=== PATIENT | female | born 1960 | race African-American/Black ===

== ENCOUNTER 2022-06-18 15:43 | Inpatient (IN) | payer BC ==
[~2022-06-18] VITALS: Ht 165.1 cm; Wt 133.0 kg
[2022-06-18 16:00] VITALS: BP 105/57; PULSE 104; TEMP 98.2
[2022-06-18] MEDS ORDERED: DOXYCYCLINE 10100 MG PO (16:11)
[2022-06-18] MEDS ORDERED: NORCO 325 MG-51 TAB PO (16:12)
[2022-06-18] MEDS ORDERED: PROTONIX 40MG T40 MG PO (16:12)
[2022-06-18] MEDS ORDERED: TIMOLOL MALEATE5 M1 OD (16:13)
[2022-06-18 17:51] LABS: BASO % 0.4 % (0.0-2.0); EOS # 0.1 K/mm3 (0.0-0.7); EOS % 0.6 % (0.0-4.0); GRAN # 8.1 K/mm3 (1.4-6.5); GRAN % 73.7 % (42.2-75.2); LYMPH # 1.9 K/mm3 (1.2-3.4); LYMPH % 16.9 % (20.0-51.0); MEAN CELL VOLUME 88 fl (80.0-100.0); MEAN CORPUSCULAR HGB CONC 31 g/dl (33.0-37.0); MEAN PLATELET VOLUME 9.8 fl (7.4-10.4); MONO # 0.8 K/mm3 (0.1-0.6); MONO % 7.4 % (1.7-9.3); PLATELET COUNT 569 K/mm3 (130-400); RED BLOOD COUNT 3.06 M/mm3 (4.10-5.30)
[2022-06-18 17:53] LABS: HEMOGLOBIN 8.4 g/dl (12.5-16.0); MEAN CORPUSCULAR HEMOGLOBIN 27 pg (27-31)
[2022-06-18 17:54] LABS: RETIC # 0.16 M/mm3 (0.02-0.16); RETIC % 5.3 % (0.5-3.52)
[2022-06-18 18:08] LABS: ALBUMIN 2.1 gm/dL (3.4-4.8); BILIRUBIN,TOTAL 0.6 mg/dL (0.2-1.2); CALCIUM 8.6 mg/dL (8.4-10.2); CREATININE, serum 0.72 mg/dL (0.57-1.11); POTASSIUM 3.5 mmol/L (3.5-4.5); TOTAL PROTEIN 7.2 gm/dL (6.2-8.1)
[2022-06-18 18:21] LABS: MAGNESIUM 1.8 mg/dL (1.6-2.6); PHOSPHOROUS 2.4 mg/dL (2.3-4.7)
--- NOTE | 2022-06-18 19:54 | NUR ---
PT BACK FROM CT RESTING IN BED, SISTER AT BEDSIDE. LEFT IJ PLACEMENT CONFIRMED AND IV MEDICATIONS ADMINISTERED PER EMAR. PT RATES PAIN A 0/10 TODAY. VSS AND TELE IN PLACE. PT DENIES N/V. FALL PRECAUTIONS IN PLACE. NO NEEDS AT THIS TIME. CALL LIGHT WITHIN REACH.
[2022-06-18 20:03] VITALS: BP 103/55; PULSE 89; TEMP 98.9
[2022-06-19] VITALS (14 sets, daily range): BP systolic 81–125; BP diastolic 42–73; PULSE 67–102; TEMP 97.8–99.1
[2022-06-19 05:16] LABS: BASO % 0.4 % (0.0-2.0); EOS # 0.1 K/mm3 (0.0-0.7); GRAN # 7.5 K/mm3 (1.4-6.5); LYMPH # 2.2 K/mm3 (1.2-3.4); LYMPH % 20.7 % (20.0-51.0); MEAN CELL VOLUME 88 fl (80.0-100.0); MEAN CORPUSCULAR HGB CONC 31 g/dl (33.0-37.0); MEAN PLATELET VOLUME 9.5 fl (7.4-10.4); MONO # 0.9 K/mm3 (0.1-0.6); MONO % 8.2 % (1.7-9.3); PLATELET COUNT 555 K/mm3 (130-400); RED BLOOD COUNT 2.78 M/mm3 (4.10-5.30)
[2022-06-19 05:19] LABS: HEMATOCRIT 24.5 % (37.0-47.0); HEMOGLOBIN 7.5 g/dl (12.5-16.0); MEAN CORPUSCULAR HEMOGLOBIN 27 pg (27-31)
--- NOTE | 2022-06-19 05:32 | NUR ---
PT SLEPT THROUGH THE NIGHT, NO EPISODES OF N/V OR BLOODY STOOLS. NO REPORTS OF ABDOMINAL PAIN
[2022-06-19 05:34] LABS: CALCIUM 8.3 mg/dL (8.4-10.2); CREATININE, serum 0.79 mg/dL (0.57-1.11); POTASSIUM 3.2 mmol/L (3.5-4.5)
--- NOTE | 2022-06-19 08:00 | NUR ---
PATIENT IS A&O. VSS ON TELE. DENIES PAIN OR NAUSEA THIS AM. NPO FOR PENDING ABSCESS DRAIN PLACEMENT TODAY. IV FLUIDS INFUSING VIA PUMP INTO LEFT IJ. HEAD TO TOE ASSESSMENT COMPLETE. AM MEDS GIVEN. PT/OT/ST CONSULTED. SISTER AT BEDSIDE. NO OTHER NEEDS. CALL LIGHT IN REACH.
[2022-06-19 09:13] LABS: AMORPHOUS CRYSTAL Present (NOT PRESENT); MUCOUS Present (NOT PRESENT); URINE BACTERIA None Seen /hpf (NONE SEEN); URINE RBC 0-2 /hpf (0-2)
[2022-06-19 09:15] LABS: COLLECTION METHOD CLEAN CATCH; PH 5.5 (5.0-8.5); URINE APPEARANCE Turbid (CLEAR/HAZY); URINE BLOOD Negative (NEGATIVE); URINE COLOR Yellow (YELLOW); URINE GLUCOSE Negative (NEGATIVE); URINE KETONE 1+ (NEGATIVE); URINE NITRATE Negative (NEGATIVE); URINE PROTEIN(semi-quant) Negative (NEGATIVE); URINE UROBILINOGEN >=8.0 E.U/dL (0.2-1.0)
--- NOTE | 2022-06-19 09:55 | NUR ---
Initial visit; Patient thanked Agency Sales Management Assistant for looking in on her and offering God's blessings thoughdeclined Spiritual Care.
--- NOTE | 2022-06-19 10:57 | NUR ---
[employer] met with patient to discuss discharge planning. Patient lives with her father, Brock (ph#[phone]) who she is a caregiver for. Patient stated that is why she moved to [place] where they live now. Patient sees Desirae Darden APRN for primary care and obtains medications from [facility] in [place] with no difficulties. Patient is independent with ADLS and does not use any DME. Patient up walking the halls with PT. Patient does not have DPOA-HC but would like to have the form to review. SW provided and offered assistance if needed in completing it. Patient plans to return home at time of discharge. Discharge Plan: Home
--- NOTE | 2022-06-19 13:24 | NUR ---
PATIENT ALERT AND ORIENTED X4. VSS. PATIENT HERE FOR ABDOMINAL ABSCESS. LIJ WITH NS AT 75/HOUR ALL LUMENS FLUSH WELL WITH GOOD BLOOD RETURN. BLE 2-3+ PATIENT REPORTS PAIN 3/10, REQUESTS PAIN MEDICATION. PATIENT IN BED WITH CALL LIGHT NEAR.
--- NOTE | 2022-06-19 13:55 | NUR ---
pt to ct per wheelchair per ct staff, Monitors applied. Pt verbalized understanding of procedure.
--- NOTE | 2022-06-19 14:00 | NUR ---
Dr Silva informed of pts blood pressure. States it is ok to procedure with some versed and fentanyl. Pt very nervous.
--- NOTE | 2022-06-19 14:08 | NUR ---
Purulent drainage removed from abscess by Dr Silva and placed in specimen cup.
--- NOTE | 2022-06-19 18:27 | NUR ---
UPON ENTERING ROOM, PATIENT FOUND TO BE SHIVERING. TEMP TAKEN. 99.1. TYLENOL 1000MG GIVEN. PATIENT DENIES SOB. CLEAR LIQUIDS TRAY BROUGHT TO ROOM. PATIENT TOLERATING.
--- NOTE | 2022-06-19 20:00 | NUR ---
PATIENT IS ORIENTED X4, DROWSY AND READY FOR BED. TELE CALLED DURING SHIFT CHANGE AND REPORTED HR IN 140'S. PATIENT WAS AMBULATING TO BATHROOM. ASYMPTOMATIC. UPON RETURN TO BED, HR ON TELE WAS NOW 107. HEAD TO TOE ASSESSMENT COMPLETE. IV ABX INFUSING VIA PUMP INTO LEFT IJ. NO C/O N/V. TOLERATING CLEARS. ACCORDIAN DRAIN WITH SMALL AMOUNTS OF BLOODY DRAINAGE NOTED. PT/OT/ST ALL CONSULTED. PATIENT REQUESTING SOMETHING FOR ABD PAIN BEFORE BED. GAVE PRN IV MORPHINE. PATIENT RESTING UP IN BED WITHOUT ANY NEEDS. CALL LIGHT IN REACH. LIGHTS TURNED DOWN.
[2022-06-20 04:19] VITALS: BP 94/56; PULSE 107; TEMP 98.3
[2022-06-20 06:14] LABS: BASO # 0.1 K/mm3 (0.0-0.2); BASO % 0.4 % (0.0-2.0); EOS % 0.1 % (0.0-4.0); GRAN # 12.3 K/mm3 (1.4-6.5); GRAN % 83.9 % (42.2-75.2); LYMPH # 1.8 K/mm3 (1.2-3.4); LYMPH % 11.9 % (20.0-51.0); MEAN CELL VOLUME 90 fl (80.0-100.0); MEAN CORPUSCULAR HGB CONC 31 g/dl (33.0-37.0); MEAN PLATELET VOLUME 9.5 fl (7.4-10.4); MONO # 0.5 K/mm3 (0.1-0.6); MONO % 3.1 % (1.7-9.3); PLATELET COUNT 553 K/mm3 (130-400); RED BLOOD COUNT 2.76 M/mm3 (4.10-5.30); REDCELL DISTRIBUTION WIDTH-CV 17.5 % (11.5-14.5)
[2022-06-20 06:24] LABS: HEMATOCRIT 24.9 % (37.0-47.0); HEMOGLOBIN 7.6 g/dl (12.5-16.0); MEAN CORPUSCULAR HEMOGLOBIN 28 pg (27-31)
[2022-06-20 06:32] LABS: C-REACTIVE PROTEIN 20.58 mg/dL (0.00-0.50); CALCIUM 7.9 mg/dL (8.4-10.2); CREATININE, serum 0.93 mg/dL (0.57-1.11); MAGNESIUM 1.7 mg/dL (1.6-2.6); POTASSIUM 3.6 mmol/L (3.5-4.5)
--- NOTE | 2022-06-20 06:44 | NUR ---
appears to be sleeping, bedside shift report received from JOSHUA Bojorquez
[2022-06-20 07:16] VITALS: BP 91/55; PULSE 94; TEMP 98.3
--- NOTE | 2022-06-20 07:57 | NUR ---
awake and looking at TV, full assessment completed, see interventions for further info, states only has pain if takes a real deep breath or moves quickly or with palpation, drain with minimal amount pink milky drainage in reseroivr, site is CD&I, denies needs at this time
--- NOTE | 2022-06-20 09:00 | NUR ---
resting in bed watching TV, having small amount of clear liquids, denies needs
--- NOTE | 2022-06-20 10:00 | NUR ---
ambulating in [facility] standby
--- NOTE | 2022-06-20 10:18 | NUR ---
sitting up in recliner after walking in [place]
--- NOTE | 2022-06-20 11:10 | NUR ---
remains sitting up in chair and denies needs
[2022-06-20 11:40] VITALS: BP 99/57; PULSE 93; TEMP 97.9
--- NOTE | 2022-06-20 12:30 | NUR ---
resting in chair, requesting something more to eat, DR Arguello notified, patient informed her diet had been advanced
--- NOTE | 2022-06-20 13:21 | NUR ---
she was confused about still being able to order l unch, instructed on how to do this now
--- NOTE | 2022-06-20 14:34 | NUR ---
remains up in chair and is visiting with her sister, had low fiber lunch and states it was very good and she was happy to have something solid to eat
--- NOTE | 2022-06-20 15:20 | NUR ---
up and about in room independently with sister at at her side assisting as needed, denies needs
[2022-06-20 15:53] VITALS: BP 102/61; PULSE 98; TEMP 98.5
--- NOTE | 2022-06-20 16:15 | NUR ---
c/o increased pain after being up and moving about and now back to bed, medicated with roxicodone 5mg po
--- NOTE | 2022-06-20 17:06 | NUR ---
in bed and appears to be sleeping, eyes closed, resp quiet and easy
--- NOTE | 2022-06-20 18:54 | NUR ---
appears to be dozing, awakened and bedside shift report given to Elena, JOSHUA
[2022-06-20 20:08] VITALS: BP 105/62; PULSE 98; TEMP 100.9
--- NOTE | 2022-06-20 20:08 | NUR ---
PT IN BED, IS ALERT AND ORIENTED X4. HAS RT ACCORDIAN DRAIN WITH SCANT DRAINAGE NOTED. HAS IVF TO LIJ, NO REDNESS OR SWELLING NOTED, GOOD BLOOD RETURN ALL LUMENS. PT DENIES PAIN TO ABD AT THIS TIME.
--- NOTE | 2022-06-20 21:32 | NUR ---
PT HAS BM, STOOL OB OBTAINED. RESULT IS POSITIVE FOR BLOOD.
[2022-06-21] VITALS (12 sets, daily range): BP systolic 81–113; BP diastolic 51–64; PULSE 65–100; TEMP 98–99.8
--- NOTE | 2022-06-21 01:00 | NUR ---
REPORTED POSITIVE OB TO JOSSIE, NO NEW ORDERS.
[2022-06-21 04:43] LABS: BASO % 0.2 % (0.0-2.0); EOS % 0.2 % (0.0-4.0); GRAN # 14.8 K/mm3 (1.4-6.5); GRAN % 86.7 % (42.2-75.2); LYMPH # 1.4 K/mm3 (1.2-3.4); LYMPH % 8.1 % (20.0-51.0); MEAN CELL VOLUME 93 fl (80.0-100.0); MEAN CORPUSCULAR HGB CONC 29 g/dl (33.0-37.0); MEAN PLATELET VOLUME 9.4 fl (7.4-10.4); MONO # 0.6 K/mm3 (0.1-0.6); MONO % 3.7 % (1.7-9.3); PLATELET COUNT 473 K/mm3 (130-400); RED BLOOD COUNT 2.48 M/mm3 (4.10-5.30); REDCELL DISTRIBUTION WIDTH-CV 17.7 % (11.5-14.5)
[2022-06-21 04:48] LABS: HEMATOCRIT 23.1 % (37.0-47.0); HEMOGLOBIN 6.7 g/dl (12.5-16.0); MEAN CORPUSCULAR HEMOGLOBIN 27 pg (27-31)
--- NOTE | 2022-06-21 04:52 | NUR ---
REPORTED HGB=6.[address] REILLY, NEW ORDERS FOR TYPE/SCREEN AND GIVE 1 UNIT PRBCS AND 500CC BOLUS NOW.
[2022-06-21 04:56] LABS: CREATININE, serum 0.82 mg/dL (0.57-1.11); POTASSIUM 3.8 mmol/L (3.5-4.5)
--- NOTE | 2022-06-21 05:15 | NUR ---
CONSENT FOR BLOOD TRANSFUSION. 500CC BOLUS INFUSING. B/P ALREADY IMPROVED.
--- NOTE | 2022-06-21 05:41 | NUR ---
MEDICATED WITH ES TYLENOL 1000MG PO NOW.
--- NOTE | 2022-06-21 11:22 | NUR ---
[employer] rounds: [employer] visit attempted. Patient was on the phone.
[2022-06-21 12:36] LABS: ALBUMIN 1.6 gm/dL (3.4-4.8); BILIRUBIN,TOTAL 0.5 mg/dL (0.2-1.2); CALCIUM 7.8 mg/dL (8.4-10.2); CREATININE, serum 0.82 mg/dL (0.57-1.11); MAGNESIUM 1.6 mg/dL (1.6-2.6); PHOSPHOROUS 2.3 mg/dL (2.3-4.7); POTASSIUM 3.6 mmol/L (3.5-4.5); TOTAL PROTEIN 5.7 gm/dL (6.2-8.1)
[2022-06-21 16:19] LABS: HEMOGLOBIN 7.6 g/dl (12.5-16.0)
--- NOTE | 2022-06-21 17:59 | NUR ---
PATIENT HAS TPN RUNNING AT 60/HR. IV FLUIDS AT 30/HR. 1 UNIT OF BLOOD GIVEN TODAY. PATIENT DISCHARGING\TRANSFERRING TO [facility]. PATIENT NPO OF THIS MORNING.
[2022-06-21 19:19] LABS: HEMATOCRIT 23.7 % (37.0-47.0); HEMOGLOBIN 7.5 g/dl (12.5-16.0)
--- NOTE | 2022-06-21 21:08 | NUR ---
EMS HERE TO TAKE PT TO [facility]. DID FLUSH ALL LUMENS OF LIJ, DISCONNECTED TPN/LIPIDS AND NS PER EMS REQUEST. PT UP TO VOID THEN TO EMS CART. PERSONAL BELONGINGS PACKAGED UP AND SENT WITH EMS STAFF, INCLUDING CELL PHONE AND [employer] P[employer]. PT DISCHARGED WITH EMS STAFF.
== END 2022-06-21 21:09 | disposition short-term general hospital (02) | DRG 372 ==
LOC: SURG 15:43
PROVIDERS: Internal Medicine; Physician Assistant; Student in an Organized Health Care Education/Training Program; Surgery; ADMIT Internal Medicine
PROC: 02HV33Z Insertion of Infusion Device into Superior Vena Cava, Percutaneous Approach (ICD-10-PCS; principal; 2022-06-18)
PROC: 0W9F30Z Drainage of Abdominal Wall with Drainage Device, Percutaneous Approach (ICD-10-PCS; 2022-06-19)
DX: K65.1 Peritoneal abscess (principal); G93.40 Encephalopathy, unspecified; K90.9 Intestinal malabsorption, unspecified; Z68.42 Body mass index [BMI] 45.0-49.9, adult; D64.9 Anemia, unspecified; K21.9 Gastro-esophageal reflux disease without esophagitis; H40.9 Unspecified glaucoma; E87.6 Hypokalemia; B96.4 Proteus (mirabilis) (morganii) as the cause of diseases classified elsewhere; R63.4 Abnormal weight loss; Z87.891 Personal history of nicotine dependence; Z23 Encounter for immunization
CPT/HCPCS: C1729; C1769; C9113; J2250; J2270; J2405; J2543; J3010; J3480; J7030; J7040; P9016; Q9967

== ENCOUNTER → 2022-08-25 | Outpatient (CLI) | payer BC ==
[~2022-08-25] MED LIST: DOXYCYCLINE 10100 MG PO; NORCO 325 MG-51 TAB PO; PROTONIX 40MG T40 MG PO; TIMOLOL MALEATE5 M1 OD
[2022-08-25 11:45] LABS: CHOLESTEROL RISK RATIO 5.1; PHOSPHOROUS 3.9 mg/dL (2.3-4.7)
== END ==
LOC: COL.LAB 09:36
PROVIDERS: Surgery
DX: Z98.84 Bariatric surgery status (principal)